=== PATIENT | male | born 1940 | race Caucasian/White ===

== ENCOUNTER 2019-04-04 07:15 | Outpatient (CLI) | payer MEDICARE, OTHER | END 2019-04-04 07:20 | LOC: LAB 07:15 | PROVIDERS: ATTEND Family Medicine | DX: G93.89 Other specified disorders of brain (principal); I63.9 Cerebral infarction, unspecified | CPT/HCPCS: 36415; 80177; P9603 ==

== ENCOUNTER 2019-04-12 13:53 | Outpatient (CLI) | payer MEDICARE, OTHER | END 2019-04-12 13:58 | LOC: LAB 13:53 | PROVIDERS: ATTEND Family Medicine | DX: R56.9 Unspecified convulsions (principal) | CPT/HCPCS: 36415; 80177; P9603 ==

== ENCOUNTER 2019-05-07 07:50 | Outpatient (CLI) | payer MEDICARE, OTHER | END 2019-05-07 08:05 | LOC: LAB 07:50 | PROVIDERS: ATTEND Family Medicine | DX: R56.9 Unspecified convulsions (principal) | CPT/HCPCS: 36415; 80177; P9603 ==

== ENCOUNTER 2019-06-05 14:45 | Outpatient (CLI) | payer MEDICARE, OTHER ==
[2019-06-05 15:30] LABS: BASOPHILS % 0.3 % (0.0-1.5); NEUTROPHILS # 3.8 # k/uL (1.4-7.7)
[2019-06-05 15:31] LABS: eGFR (Non-African) > 60
== END 2019-06-05 14:50 ==
LOC: LAB 14:45
PROVIDERS: ATTEND Family Medicine
DX: F10.99 Alcohol use, unspecified with unspecified alcohol-induced disorder (principal); R44.3 Hallucinations, unspecified; R41.0 Disorientation, unspecified; Y90.9 Presence of alcohol in blood, level not specified
CPT/HCPCS: 36415; 80053; 85025; P9603